=== PATIENT | female | born 1990 | race Caucasian/White ===

== ENCOUNTER 2019-02-12 19:38 | Emergency (ER) | payer MEDICAID, OTHER ==
[~2019-02-12] VITALS: Ht 167.6 cm; Wt 70.5 kg
[2019-02-12] MEDS ORDERED: ONDANSETRON 4 MG INJ IV STA (19:47)
[2019-02-12] MEDS ORDERED: LIDOCAINE/MYLANTA 40 ML BTL PO STA (19:47)
[2019-02-12] MEDS ORDERED: SOD CHLORIDE 0.9% 1,000 ML IV STA (19:47)
[2019-02-12] MEDS ORDERED: BELLADONNA/PHENOBARBITAL TAB PO STA (19:47)
[2019-02-12 20:00] VITALS: Ht 167.6 cm; Wt 70.5 kg
--- NOTE | 2019-02-12 20:17 | ERD ---
ER Documentation Chief Complaint Chief Complaint PT BIBA C/O SUICIDE ATTEMPT BY DRINKING BLEACH HPI This is a 28-year-old schizophrenic woman brought in by EMS initially with [employer] officers for suicidal attempt, she states she has been having auditory hallucinations about the Lord and about , dying, states she wants to kill herself, she attempted today by taking an "sip" of bleach. She denies chest pain or shortness of breath, no vomiting or diarrhea, no complaints of abdominal pain, no headache or blurry vision. Patient was transported here by EMS without further complications ROS All systems reviewed and are negative except as per history of present illness. Allergies Allergies: Coded Allergies: shrimp (Verified Allergy, Unknown, 02/12/19) PMhx/Soc Schizophrenia Medical and Surgical Hx: pt denies Surgical Hx Hx Psychiatric Problems: Yes (SCHIZOPHRENIA, SUICIDE ATTEMPT) Hx Miscellaneous Medical Probl: Yes Hx Alcohol Use: No Hx Substance Use: No Hx Tobacco Use: No Smoking Status: Never smoker FmHx Family History: No diabetes Physical Exam Vitals Vital Signs Date Temp Pulse Resp B/P (MAP) Pulse Ox O2 O2 Flow FiO2 Time Delivery Rate 02/12/19 98.5 103 21 101/75 99 20:00 (84) Physical Exam GENERAL: Well-developed, well-nourished, well-hydrated, in no apparent distress, looks nontoxic in appearance HEENT: Moist mucous membranes, pink conjunctiva, no cervical spine tenderness or step-off deformities. No submandibular induration, and no pharyngeal erythema NEURO: Alert and oriented 3, cranial nerves II through XII intact bilaterally, pupils equal round reactive to light, no focal deficits or facial asymmetry, sensation intact distally Strength 5/5 in upper and lower extremities bilaterally CARDIAC: Regular rate and rhythm, no murmurs rubs or gallops LUNGS: Clear bilaterally no wheezing crackles or stridor ABDOMEN: Soft nontender, no guarding, no rigidity, no rebound, no psoas sign no obturator sign. PSYCH: Flat affect Result Diagram: 02/12/19195502/12/191955 Results 24 hrs Laboratory Tests Test 02/12/19 19:55 02/12/19 19:56 Urine Color YELLOW Urine Clarity SLIGHTLY CLOUDY Urine pH 6.0 Urine Specific [place] 1.015 Urine Ketones NEGATIVE mg/dL Urine Nitrite NEGATIVE mg/dL Urine Bilirubin NEGATIVE mg/dL Urine Urobilinogen NEGATIVE mg/dL Urine Leukocyte Esterase NEGATIVE Kareen/ul Urine Microscopic RBC 6 /HPF Urine Microscopic WBC 2 /HPF Urine Squamous Epithelial Cells FEW /HPF Urine Hemoglobin 3+ mg/dL Urine Glucose NEGATIVE mg/dL Urine Total Protein NEGATIVE mg/dl White Blood Count 5.9 10^3/ul Red Blood Count 4.67 10^6/ul Hemoglobin 13.9 g/dl Hematocrit 40.8 % Mean Corpuscular Volume 87.4 fl Mean Corpuscular Hemoglobin 29.8 pg Mean Corpuscular Hemoglobin Concent 34.1 g/dl Red Cell Distribution Width 11.6 % Platelet Count 227 10^3/UL Mean Platelet Volume 9.3 fl Immature Granulocytes % 0.300 % Neutrophils % 68.9 % Lymphocytes % 21.5 % Monocytes % 7.7 % Eosinophils % 1.3 % Basophils % 0.3 % Nucleated Red Blood Cells % 0.0 /100WBC Immature Granulocytes # 0.020 10^3/ul Neutrophils # 4.1 10^3/ul Lymphocytes # 1.3 10^3/ul Monocytes # 0.5 10^3/ul Eosinophils # 0.1 10^3/ul Basophils # 0.0 10^3/ul Nucleated Red Blood Cells # 0.0 10^3/ul Prothrombin Time 12.9 Sec Prothrombin Time Ratio 1.0 INR International Normalized Ratio 0.96 Activated Partial Thromboplast Time 32.3 Sec Sodium Level 141 mmol/L Potassium Level 3.7 mmol/L Chloride Level 107 mmol/L Carbon Dioxide Level 25 mmol/L Anion Gap 9 Blood Urea Nitrogen 9 mg/dl Creatinine 0.59 mg/dl Est Glomerular Filtrat Rate mL/min > 60 mL/min Glucose Level 94 mg/dl Calcium Level 9.7 mg/dl Total Bilirubin 0.3 mg/dl Direct Bilirubin 0.00 mg/dl Indirect Bilirubin 0.3 mg/dl Aspartate Amino Transf (AST/SGOT) 21 IU/L Alanine Aminotransferase (ALT/SGPT) 25 IU/L Alkaline Phosphatase 71 IU/L Total Protein 7.6 g/dl Albumin 4.4 g/dl Globulin 3.20 g/dl Albumin/Globulin Ratio 1.37 Serum HCG, Qualitative NEGATIVE Salicylates Level < 1.0 mg/dl Urine Opiates Screen Negative Acetaminophen Level < 10.0 ug/ml Urine Barbiturates Negative Urine Amphetamines Screen Negative Urine Benzodiazepines Screen Negative Urine Cocaine Screen Negative Urine Cannabinoids Negative Ethyl Alcohol Level < 10.0 mg/dl Current Medications Medications Dose Sig/[place]ora Start Time Status Last (Trade) Ordered Route PRN Stop Time Admin Dose Reason Admin Sodium 1,000 ml @ Q1H STAT 02/12/19 DC Chloride 1,000 mls/hr IV 19:47 02/12/19 20:14 Ondansetron 4 mg ONCE STAT 02/12/19 DC 02/12/19 HCl (Zofran IV 19:47 20:42 Inj) 02/12/19 20:34 40 ml ONCE STAT 02/12/19 DC 02/12/19 Miscellaneous PO 19:47 20:42 Medication 02/12/19 20:34 (Gi Cocktail (2)) Bell[place]onna/ 2 tab ONCE STAT 02/12/19 DC 02/12/19 Phenobarbital PO 19:47 20:42 () 02/12/19 20:34 Procedures/MDM Security one-to-one watch was placed and I consulted tele-psychiatry. I administered GI cocktail p.o. One AP view of the chest performed, read by me reveals no acute infiltrates, normal mediastinum, sharp costophrenic and cardiac borders, no air under the diaphragm. Otherwise unremarkable chest x-ray. CBC and electrolytes are normal, liver function tests normal, test negative, urinalysis negative for infection. Drug screen and ethanol levels are pending I will follow-up. Patient's behavioral symptoms have stabilized while in the department. Patient is medically cleared and appropriate for psychiatric evaluation and work up. No e/o neurologic, toxic, infectious, or metabolic cause. Tele-psychiatry evaluated the patient at the bedside and recommended psychiatric hold and transfer to [facility], also recommended Risperdal 1 mg p.o. twice daily. I gave 1 dose in the emergency department. Departure Diagnosis: Primary Impression: Suicide threat or attempt Additional Impressions: Schizophrenia Schizophrenia type: paranoid schizophrenia Qualified Codes: F20.0 - Paranoid schizophrenia Ingestion of nontoxic substance Encounter type: initial encounter Injury intent: intentional self-harm Qualified Codes: T65.92XA - Toxic effect of unspecified substance, intentional self-harm, initial encounter Condition: KRYSTINA Farley MD Feb 12, 2019 20:17
--- NOTE | 2019-02-12 21:42 | PSY ---
Date/Time of Note Date/Time of Note DATE: 02/12/19 TIME: 21:41 Psychiatric Subjective Eval Consent Pt consented to telemedicine: Yes Subjective Evaluation Patient location: emergency Chief Complaint: PT BIBA C/O SUICIDE ATTEMPT BY DRINKING BLEACH Medical history Problems Medical Problems: (1) Ingestion of nontoxic substance Status: Acute (2) Schizophrenia Status: Acute (3) Suicide threat or attempt Status: Acute Allergies: Coded Allergies: shrimp (Verified Allergy, Unknown, 02/12/19) Psychiatric Objective Eval Mental Status Examination: Laboratory Results Laboratory Tests Test 02/12/19 19:55 02/12/19 19:56 Urine Color YELLOW Urine Clarity SLIGHTLY CLOUDY Urine pH 6.0 Urine Specific [place] 1.015 Urine Ketones NEGATIVE mg/dL Urine Nitrite NEGATIVE mg/dL Urine Bilirubin NEGATIVE mg/dL Urine Urobilinogen NEGATIVE mg/dL Urine Leukocyte Esterase NEGATIVE Kareen/ul Urine Microscopic RBC 6 /HPF Urine Microscopic WBC 2 /HPF Urine Squamous Epithelial Cells FEW /HPF Urine Hemoglobin 3+ mg/dL Urine Glucose NEGATIVE mg/dL Urine Total Protein NEGATIVE mg/dl White Blood Count 5.9 10^3/ul Red Blood Count 4.67 10^6/ul Hemoglobin 13.9 g/dl Hematocrit 40.8 % Mean Corpuscular Volume 87.4 fl Mean Corpuscular Hemoglobin 29.8 pg Mean Corpuscular Hemoglobin Concent 34.1 g/dl Red Cell Distribution Width 11.6 % Platelet Count 227 10^3/UL Mean Platelet Volume 9.3 fl Immature Granulocytes % 0.300 % Neutrophils % 68.9 % Lymphocytes % 21.5 % Monocytes % 7.7 % Eosinophils % 1.3 % Basophils % 0.3 % Nucleated Red Blood Cells % 0.0 /100WBC Immature Granulocytes # 0.020 10^3/ul Neutrophils # 4.1 10^3/ul Lymphocytes # 1.3 10^3/ul Monocytes # 0.5 10^3/ul Eosinophils # 0.1 10^3/ul Basophils # 0.0 10^3/ul Nucleated Red Blood Cells # 0.0 10^3/ul Prothrombin Time 12.9 Sec Prothrombin Time Ratio 1.0 INR International Normalized Ratio 0.96 Activated Partial Thromboplast Time 32.3 Sec Sodium Level 141 mmol/L Potassium Level 3.7 mmol/L Chloride Level 107 mmol/L Carbon Dioxide Level 25 mmol/L Anion Gap 9 Blood Urea Nitrogen 9 mg/dl Creatinine 0.59 mg/dl Est Glomerular Filtrat Rate mL/min > 60 mL/min Glucose Level 94 mg/dl Calcium Level 9.7 mg/dl Total Bilirubin 0.3 mg/dl Direct Bilirubin 0.00 mg/dl Indirect Bilirubin 0.3 mg/dl Aspartate Amino Transf (AST/SGOT) 21 IU/L Alanine Aminotransferase (ALT/SGPT) 25 IU/L Alkaline Phosphatase 71 IU/L Total Protein 7.6 g/dl Albumin 4.4 g/dl Globulin 3.20 g/dl Albumin/Globulin Ratio 1.37 Serum HCG, Qualitative NEGATIVE Salicylates Level < 1.0 mg/dl Urine Opiates Screen Negative Acetaminophen Level < 10.0 ug/ml Urine Barbiturates Negative Urine Amphetamines Screen Negative Urine Benzodiazepines Screen Negative Urine Cocaine Screen Negative Urine Cannabinoids Negative Ethyl Alcohol Level < 10.0 mg/dl Assessment and Plan Recommendation/Plan Discharge Disposition: Psychiatric inpatient Legal Status: Place involuntary hold Assessment Additional comments: IDENTIFYING INFORMATION: 28 year old Female patient who is currently located at the hospital and for whom psychiatric consultation was requested. SOURCES OF INFORMATION: The patient who appears to be unreliable and the medical records; the nursing staff. CHIEF COMPLAINT: "I drank bleach by mistake". HISTORY OF PRESENT ILLNESS: The patient was interviewed via telemedicine in the presence of and under the supervision of nursing staff of the hospital. The consent to conducting this interview via telemedicine was obtained by the nursing staff at the hospital. SEBASTIEN Laws reports that the patient presented with SI, AH and took a sip of bleach, delusions of wanting to be with Sukhdeep and her family members. The patient reports having drunk bleach by mistake thinking it was water, then states that the voices told her to drink the bleach, admits to AH, delusions of being after her or that someone wants to kill her. The patient denies using alcohol heavily or regularly. The patient denies using any other substances. In terms of past psychiatric history, the patient reports having a history of past psychiatric hospitalizations. The patient reports having a history of no past suicide attempts. PAST MEDICAL HISTORY: none. CURRENT MEDICATIONS: risperidone unknown dose qhs ALLERGIES TO MEDICATIONS: shrimp. LABORATORY TESTS: CBC wnl, CMP wnl, UDS -, betahCG negative, alcohol level not detected SOCIAL HISTORY: single, lives with mom, on disability. REVIEW OF SYSTEMS: Constitutional (e.g., fever, weight loss): negative; Eyes, Ears, Nose, Mouth, Throat: negative; Cardiovascular: negative; Respiratory: negative; Gastrointestinal: negative; Genitourinary: negative; Musculoskeletal: negative; Integumentary (skin and/or breast): negative; Neurological: negative; Psychiatric: as per HPI; Endocrine: negative; Hematologic/Lymphatic: negative; Allergic/Immunologic: negative. MENTAL STATUS EXAMINATION: General Appearance and Behavior: Calm, cooperative with the interview, pleasant with the current interviewer, makes fair eye contact, fairly groomed, no abnormal movements noted, Speech: Regular rate, regular rhythm, normal latency, normal volume, somewhat decreased amount, Flow of thought: sequential, logical, goal-directed, Content of thought: + auditory hallucinations, no visual hallucinations, + delusions, positive for suicidal ideation; no homicidal ideation, Mood: "depressed", Affect: dysthymic, dysphoric, not reactive, Attention: normal based on the interview, Insight: fair, Judgment: poor, Memory: normal based on the interview, Sensorium: alert and oriented to person, place and date. ASSESSMENT: The patient's presentation and history are consistent with the diagnosis of unspecified psychotic disorder. The patient presents with an exacerbation of psychosis in the context of medication noncompliance, psychosocial stressors. PLAN: - Medication management: Would start risperidone 1 mg po BID. Would start haloperidol 5 mg IM PRN severe agitation q4 hours. Would start diphenhydramine 50 mg IM PRN severe agitation q4 hours. Would start lorazepam 2 mg IM PRN severe agitation q4 hours Will defer to the inpatient psychiatry team for other medication changes. - Labs: No other laboratory tests are needed at this time. - Psychotherapy: Provided supportive psychotherapy and psychoeducation. - Disposition: Would recommend involuntary admission to the inpatient psychiatric unit given the severity of the patient's psychiatric condition and the fact that the patient is an imminent danger to self and/or others so long as the patient has been cleared medically for admission to psychiatry. Inpatient psychiatric admission is at this time the least restrictive environment where the patient can receive the psychiatric care that is needed. Would place on suicide precautions. The patient fulfills criteria for being placed on an involuntary hold for being a danger to self due to a psychiatric disorder. Discussed about the above plan with Dr. Cid. EMPERATRIZ HURTADO MD Feb 12, 2019 21:42
[2019-02-12] MEDS ORDERED: RISPERIDONE 1 MG TAB PO ONE (22:00)
[2019-02-13 08:15] VITALS: BP 97/67; PULSE 62; RESP 17
== END 2019-02-13 08:45 ==
LOC: E/R 19:38
DX: T14.91XA Suicide attempt, initial encounter (principal); F20.0 Paranoid schizophrenia; T65.92XA Toxic effect of unspecified substance, intentional self-harm, initial encounter; R40.2142 Coma scale, eyes open, spontaneous, at arrival to emergency department; R40.2252 Coma scale, best verbal response, oriented, at arrival to emergency department; R40.2362 Coma scale, best motor response, obeys commands, at arrival to emergency department; R06.02 Shortness of breath; X58.XXXA Exposure to other specified factors, initial encounter; Y92.9 Unspecified place or not applicable
CPT/HCPCS: 36415; 71045; 80053; 80307; 81001; 84703; 85025; 85610; 85730; 96374; J2405; Z7502; Z7610